=== PATIENT | male | born 2005 ===

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

== ENCOUNTER 2025-03-03 04:16 | Emergency (ER) | payer OTHER ==
[~2025-03-03] VITALS: Ht 182.9 cm; Wt 61.2 kg
== END 2025-03-03 05:24 | disposition home or self-care (01) ==
LOC: ER 04:16
DX: L02.416 Cutaneous abscess of left lower limb (principal); F20.9 Schizophrenia, unspecified; F31.9 Bipolar disorder, unspecified; Z88.0 Allergy status to penicillin
CPT/HCPCS: 99282